=== PATIENT | female | born 1955 | race Caucasian/White ===

== ENCOUNTER → 2023-12-28 | Outpatient (CLI) | payer MEDICARE, BC, SELFPAY ==
[2023-12-28 08:31] LABS: Basophils # (Auto) 0.1 Thou/mm3 (0.0-0.2); Basophils % (Auto) 1 % (0-2.5); Eosinophils # (Auto) 0.3 Thou/mm3 (0.0-0.5); Eosinophils % (Auto) 2 % (0-10); Hematocrit 39.4 % (36.0-46.0); Hemoglobin 12.8 g/dL (12.0-16.0); Immature Granulocytes % (Auto) 0 % (0-0); Immature Granulocytes Auto 0.04 Thou/mm3 (0.00-0.00); Lymphocytes % (Auto) 27 % (10-50); Mean Corpuscular HGB Conc 32.5 g/dl (31.0-37.0); Mean Corpuscular Hemoglobin 27.3 pg (25.0-35.0); Mean Corpuscular Volume 84 fL (80-100); Monocytes % (Auto) 9 % (0-12); Neutrophils # (Auto) 6.6 Thou/mm3 (1.8-7.7); Neutrophils % (Auto) 60 % (37-80); Nucleated Red Blood Cell % 0 /100 WBC (0); Platelet Count 441 Thou/mm3 (140-440); Red Blood Count 4.69 Miln/mm3 (4.00-5.20)
[2023-12-28 09:00] LABS: Vitamin D 25 Hydroxy Total 38.4 ng/mL (7.3-40.2)
[2023-12-28 09:01] LABS: Cardiac Risk Estimate 3.4 RATIO (3.7-5.6); Cholesterol 218 mg/dL (132-200); HDL Cholesterol 65 mg/dL (40-60); LDL Cholesterol,Calculated 133 mg/dL (0-130); Triglycerides 101 mg/dL (30-150)
== END | disposition home or self-care (01) ==
PROVIDERS: PCP Internal Medicine; Referring Provider Internal Medicine; Visit Provider Internal Medicine
DX: E78.2 Mixed hyperlipidemia (principal); E55.9 Vitamin D deficiency, unspecified
CPT/HCPCS: 36415; 80061; 82306; 85025

== ENCOUNTER 2024-06-02 09:50 | Day surgery (SDC) | payer MEDICARE, BC, SELFPAY ==
--- NOTE | 2024-05-27 07:14 | EKG_ITS ---
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
[2024-05-27 12:10] VITALS: BMI 29.4
[2024-05-27 13:30] LABS: Alanine Aminotransferase 37 U/L (10-49); Albumin, Serum 4.7 gm/dL (3.4-4.8); Albumin/Globulin Ratio 1.7 (1.2-2.2); Alkaline Phosphatase 100 U/L (46-116); Anion Gap 9 (7-16); Aspartate Amino Transferase 24 U/L (0-34); BUN/Creatinine Ratio 20 Ratio (12-20); Bilirubin,Total 0.4 mg/dL (0.3-1.2); Blood Urea Nitrogen 20 mg/dL (9-23); Calcium 10.1 mg/dL (8.3-10.6); Calcium (Corrected) 10.1 mg/dL (8.5-10.1); Carbon Dioxide 25.6 mMol/L (20.0-31.0); Chloride 106 mMol/L (98-107); Globulin 2.8 gm/dL (2.3-3.5); Glucose 91 mg/dL (74-106); Osmolality,Calculated 283 (275-295); Potassium 4.4 mMol/L (3.4-5.1); Sodium 141 mMol/L (136-145); Total Protein 7.5 gm/dL (5.7-8.2); eGFR > 60 See Note
--- NOTE | 2024-06-01 13:54 | SUR.PREOP ---
[facility] records reviewed with Dr Felix.
[2024-06-02] VITALS (8 sets, daily range): BP systolic 107–178; BP diastolic 53–97; PULSE 72–87; RESP 15–20; TEMP 36.3–36.7; O2SAT 96–99; BMI 29.0
[2024-06-02] MEDS: OXYMETAZOLINE NAS SPRY 0.05% 15 ML BTL NASAL (11:44)
[2024-06-02] MEDS: RINGERS LACTATED 1000 ML 1,000 ML 20 ML IV (11:45)
--- NOTE | 2024-06-02 13:19 | PD.SUROPNT ---
Date of Procedure 06/02/24 Pre Op Diagnosis Nasal septal deviation with obstruction Bilateral inferior turbinate hypertrophy Bilateral nasal valve collapse Post Op Diagnosis Nasal septal deviation with obstruction Bilateral inferior turbinate hypertrophy Bilateral nasal valve collapse Procedure Intranasal septoplasty Bilateral submucous resection of inferior turbinates Bilateral insertion of 20 mm Latera implants Findings Deviated septum to the right side posteriorly. There is enlargement of the inferior turbinates and bilateral nasal valve collapse. Procedure Description Indications: A 69-year-old female with the above findings. She is try medical therapy without any significant improvement and wished to proceed with surgical intervention. Risks including bleeding infection nasal deformity implant extrusion and potential need for further surgery discussed with her and she wished to proceed. Anticipated outcomes were discussed as well. Patient was transferred to the operative suite where she was anesthetized and intubated. Patient was sterilely prepped and draped. Timeout was performed. The nasal septum inferior turbinate send nasal vestibular skin were injected with 1% lidocaine with 1 100,000 dilution epinephrine. Approximately 5 cc total were used. Caudal rim incision was made on the left side of the septum and a mucosal flap elevated off the cartilage and bone. Perpendicular plate was from the quadrangular cartilage. Mucosal flap was then elevated off the right side. Double-action scissors used to incise the deviated perpendicular plate and bony fragments removed a Yumiko forceps. This allowed the septum to return near midline. Inferior turbinates were then reduced in a submucosal plane with a 2.9 mm turbinate shaver blade. First on the left side and then the right side. Dissection was performed on insertion and withdrawal. Entry sites were cauterized with suction cautery. The template was then used to kentrell the depth of insertion on the nasal dorsum is bilaterally. The Latera mate fourth was then carefully inserted into the left nasal valve dissected subcutaneously over the periosteum of the left nasal bone. Once the appropriate depth and been reached the nasal valve skin was gently retracted with a skin hook and the mate fourth device activated and the implant inserted without difficulty. A similar procedure was then performed on the right side. The mucosal flaps of the septal mucosa reapproximated to the underlying cartilage and with 4-0 plain gut suture. This was used to close the rim incision as well. Patient was awakened and taken the recovery room in stable condition Anesthesia other (General Per LMA) Implants Bilateral 20 mm Latera implants Pathology / specimen None Estimated Blood Loss 5 Surgeon Kentrell Willams DO Surgical Staff Operation Date: 06/02/24 13:15 <No data on this case meets the specified criteria>
--- NOTE | 2024-06-02 13:22 | SUR.PHASEI ---
1322: Pt. arrived with LMA in place, vitals stable, breathing unlabored, dressing below nares CDI, no active bleed noted, report received from MD Contreras and Tomas RN.
[2024-06-02] MEDS: HYDROcodone/APAP 5/325 TABLET 1 TAB PO (14:00)
--- NOTE | 2024-06-02 14:22 | SUR.PHASEII ---
1422: Pt. AAOx4, vitals stable, breathing unlabored, no complaint of pain or nausea, dressing below nose CDI, no active bleed noted, pt. tolerated sips of water well, pt. ambulated to wheelchair with steady gait and no assist, no complications. Gave discharge instructions to the pt. and her ride, both verbalized understanding and had no further questions. Pt. left with all personal belongings.
== END 2024-06-02 16:10 | disposition home or self-care (01) ==
PROVIDERS: PCP Internal Medicine; Referring Provider Otolaryngology; Visit Provider Otolaryngology
PROC: (CPT 30520; principal; 2024-06-02 13:00)
DX: J34.2 Deviated nasal septum (principal); J34.3 Hypertrophy of nasal turbinates; J34.829 Nasal valve collapse, unspecified; Z01.810 Encounter for preprocedural cardiovascular examination
CPT/HCPCS: 30520; 30468; 30140; 36415; 80053; 93005; A4217; A4649; C1889; J0131; J0690; J1100; J2250; J2405; J2704; J3010; J3490; J7040; J7120; A9270

== ENCOUNTER → 2024-06-16 | Outpatient (CLI) | payer MEDICARE, BC, SELFPAY ==
--- NOTE | 2024-06-16 13:15 | XR_ITS ---
Examination: Screening digital mammography, bilateral Computer aided detection 3-D breast Tomosynthesis, bilateral Date and time of exam: June 16, 2024 1247 hours Compared to exams dating to July 19, 2020 Indication: Screening Technique: Nonmagnified MLO, CC views of the breasts to been obtained, reconstructed from 3-D Tomosynthesis images. R2 computer aided detection program utilized for evaluation of suspicious masses and/or abnormal calcifications. 3-D Tomosynthesis images obtained. Findings: Scattered areas of fibroglandular density. Benign calcifications. No interval suspicious masses Impression: BI-RADS category II: Benign Findings. Recommend 1 year follow-up mammogram.
== END | disposition home or self-care (01) ==
LOC: CDIM 12:39
PROVIDERS: Referring Provider Internal Medicine; Visit Provider Internal Medicine
DX: Z12.31 Encounter for screening mammogram for malignant neoplasm of breast (principal); R92.323 Mammographic fibroglandular density, bilateral breasts
CPT/HCPCS: 77063; 77067

== ENCOUNTER → 2024-07-05 | Outpatient (CLI) | payer MEDICARE, BC, SELFPAY ==
--- NOTE | 2024-07-05 08:00 | XR_ITS ---
Examination: CT chest, without intravenous contrast. Sagittal and coronal 2-D reconstructions. Exam date and time: 10/05/2024 0821 hours Comparison December 07, 2023 INDICATIONS: 2 mm pulmonary nodule right lung posteriorly on CT chest December 07, 2023 CTDI:vol (mGy) 11 DLP: (mGycm) 430 Technique: Multiple 3.0 mm axial sections of the chest to been obtained. Bone and lung density settings are obtained. Sagittal and coronal 2-D reconstructions have been obtained. Low dose protocols were performed. One or more of the following dose reduction techniques were used; automated exposure control, adjustment of the mA and/or KV according to patient size, use of iterative reconstruction technique. Findings: Thoracic aortic calcification no aneurysmal dilatation Pulmonary artery segments are not enlarged Stable 2 mm pulmonary nodule posterior right lung No new pulmonary nodules No visualized liver or splenic lesion Contracted gallbladder No pancreatic or adrenal mass IMPRESSION: Stable 2 mm pulmonary nodule posterior right lung No new pulmonary nodules
== END | disposition home or self-care (01) ==
LOC: CCTX 07:58
PROVIDERS: PCP Internal Medicine; Referring Provider Internal Medicine; Visit Provider Internal Medicine
DX: R91.1 Solitary pulmonary nodule (principal)
CPT/HCPCS: 71250